=== PATIENT | male | born 1965 | race African-American/Black ===

== ENCOUNTER 2016-04-22 16:04 | Emergency (ER) | payer SELFPAY ==
[~2016-04-22] VITALS: Ht 193 cm; Wt 137.0 kg
[~2016-04-22 16:04] MED LIST: Z.0.NO CURRENT MEDS
[2016-04-22 16:05] VITALS: BP 166/94; PULSE 86; RESP 20; TEMP 100.8; O2SAT 97
[2016-04-22] MEDS ORDERED: ONDANSETRON HCL 4 MG/2 ML VIAL IV PUSH ONE (16:30)
[2016-04-22] MEDS ORDERED: SODIUM CHLOR 0.9% 1000 ML INJ 1,000 ML IV ONE (16:30)
[2016-04-22] MEDS ORDERED: RESP: ALBUTEROL 2.5 MG/IPRATROPIUM 0.5 MG NEB (SCH) NEB ONE (16:30)
[2016-04-22] MEDS ORDERED: RESP: LIDOCAINE HCL 4% PF 5 ML NEB NEB ONE (16:30)
[2016-04-22] MEDS ORDERED: ACETAMINOPHEN 325 MG TAB PO ONE (16:30)
--- NOTE | 2016-04-22 16:34 | PD ---
HPI Chief Complaint: Cold / Flu Symptoms Time Seen by Provider: 16:25 Travel History International Travel<30 days: No Contact w/Intl Traveler<30days: No Traveled to known affect area: No History of Present Illness HPI The patient is a 50-year-old after French male who presents emergency department for cough and cold symptoms. The patient states his symptoms started several days ago, initially with headache, body aches, cough, nausea, vomiting, and diarrhea. The patient states his cough is productive, producing yellow sputum, but denies any shortness of breath. He does complain of fevers high as 100.8 at home with intermittent chills and sweats. The headache is intermittent, the body aches have resolved, his last episode of nausea and vomiting with several days ago, however, he did have 1 episode of diarrhea this morning which she describes as loose and watery. The patient does note a decreased appetite, last ate dinner, last night, hamburger. The patient has been drinking water today, but did not eat any food today. The patient does have a history of marijuana use, but denies any history of cigarette use. The patient denies any chronic medical problems. He states he currently does not have a primary physician. He denies any sick contacts at home. The patient did not receive an influenza vaccination this year. [facility] Past Medical History Medical History: Denies Significant Hx Past Surgical History Surgical History: No Previous Surgery Social History Tobacco Use: No Substance Use: Yes (marijuana) Allergies-Medications (Allergen,Severity, Reaction): Coded Allergies: No Known Allergies (Unverified , 04/22/16) Reported Meds & Prescriptions Reported Meds & Active Scripts Active No Active Prescriptions or Reported Medications Review of Systems Except as stated in HPI: all other systems reviewed are Neg General / Constitutional: Positive: Fever, Chills Eyes: No: Photophobia HENT: Positive: Headaches, Congestion Cardiovascular: No: Chest Pain or Discomfort Respiratory: Positive: Cough, No: Shortness of Breath Gastrointestinal: Positive: Nausea, Vomiting, Diarrhea, No: Abdominal Pain Genitourinary: No: Dysuria Musculoskeletal: Positive: Myalgias Skin: No Rash Physical Exam Narrative GENERAL: Awake, alert, pleasant 50-year-old male who appears his stated age and is in no acute respiratory distress. SKIN: Forehead is slightly diaphoretic. HEAD: Atraumatic. Normocephalic. EYES: Pupils equal and round. No scleral icterus. No injection or drainage. ENT: No nasal bleeding or discharge. Oropharynx reveals erythema but no exudate. NECK: Trachea midline. No JVD. CARDIOVASCULAR: Regular rate and rhythm. No murmur appreciated. Heart rate in the 80s. RESPIRATORY: No accessory muscle use. Few scattered rhonchi. GASTROINTESTINAL: Abdomen soft, non-tender, nondistended. No rebound tenderness. MUSCULOSKELETAL: No obvious deformities. No clubbing. No cyanosis. No edema. NEUROLOGICAL: Awake and alert. No obvious cranial nerve deficits. Motor grossly within normal limits. Normal speech. PSYCHIATRIC: Appropriate mood and affect; insight and judgment normal. Data Data Last Documented VS Vital Signs Date Time Temp Pulse Resp B/P Pulse Ox O2 Delivery O2 Flow Rate FiO2 04/22/16 17:54 98 21 04/22/16 16:49 88 20 180/78 Nasal Cannula 2 04/22/16 16:05 100.8 Orders Complete Blood Count With Diff (04/22/16 16:25) Comprehensive Metabolic Panel (04/22/16 16:25) Influenzae A/B Antigen (04/22/16 16:25) Chest, Single Ap (04/22/16 ) Lactic Acid (04/22/16 16:25) Sodium Chlor 0.9% 1000 Ml Inj (Ns 1000 M (04/22/16 16:30) Acetaminophen (Tylenol) (04/22/16 16:30) Albuterol-Ipratropium Neb (Duoneb Neb) (04/22/16 16:30) Lidocaine Pf 4% Neb (Lidocaine Pf 4% Neb (04/22/16 16:30) Ondansetron Inj (Zofran Inj) (04/22/16 16:30) Amlodipine (Norvasc) (04/22/16 18:15) Oseltamivir (Tamiflu) (04/22/16 18:15) Labs Laboratory Tests Test 04/22/16 17:00 White Blood Count 5.0 TH/MM3 Red Blood Count 4.97 MIL/MM3 Hemoglobin 15.3 GM/DL Hematocrit 44.0 % Mean Corpuscular Volume 88.5 FL Mean Corpuscular Hemoglobin 30.8 PG Mean Corpuscular Hemoglobin 34.8 % Concent Red Cell Distribution Width 13.5 % Platelet Count 196 TH/MM3 Mean Platelet Volume 9.2 FL Neutrophils (%) (Auto) 63.3 % Lymphocytes (%) (Auto) 13.6 % Monocytes (%) (Auto) 22.4 % Eosinophils (%) (Auto) 0.4 % Basophils (%) (Auto) 0.3 % Neutrophils # (Auto) 3.2 TH/MM3 Lymphocytes # (Auto) 0.7 TH/MM3 Monocytes # (Auto) 1.1 TH/MM3 Eosinophils # (Auto) 0.0 TH/MM3 Basophils # (Auto) 0.0 TH/MM3 CBC Comment DIFF FINAL Differential Comment Sodium Level 138 MEQ/L Potassium Level 3.2 MEQ/L Chloride Level 102 MEQ/L Carbon Dioxide Level 28.3 MEQ/L Anion Gap 8 MEQ/L Blood Urea Nitrogen 10 MG/DL Creatinine 1.45 MG/DL Estimat Glomerular Filtration 63 ML/MIN Rate Random Glucose 90 MG/DL Lactic Acid Level 1.0 mmol/L Calcium Level 8.6 MG/DL Total Bilirubin 0.4 MG/DL Aspartate Amino Transf 40 U/L (AST/SGOT) Alanine Aminotransferase 39 U/L (ALT/SGPT) Alkaline Phosphatase 91 U/L Total Protein 8.3 GM/DL Albumin 4.1 GM/DL MDM Medical Decision Making Medical Screen Exam Complete: Yes Emergency Medical Condition: Yes Medical Record Reviewed: Yes Interpretation(s) Laboratory Tests Test 04/22/16 17:00 White Blood Count 5.0 TH/MM3 Red Blood Count 4.97 MIL/MM3 Hemoglobin 15.3 GM/DL Hematocrit 44.0 % Mean Corpuscular Volume 88.5 FL Mean Corpuscular Hemoglobin 30.8 PG Mean Corpuscular Hemoglobin 34.8 % Concent Red Cell Distribution Width 13.5 % Platelet Count 196 TH/MM3 Mean Platelet Volume 9.2 FL Neutrophils (%) (Auto) 63.3 % Lymphocytes (%) (Auto) 13.6 % Monocytes (%) (Auto) 22.4 % Eosinophils (%) (Auto) 0.4 % Basophils (%) (Auto) 0.3 % Neutrophils # (Auto) 3.2 TH/MM3 Lymphocytes # (Auto) 0.7 TH/MM3 Monocytes # (Auto) 1.1 TH/MM3 Eosinophils # (Auto) 0.0 TH/MM3 Basophils # (Auto) 0.0 TH/MM3 CBC Comment DIFF FINAL Differential Comment Sodium Level 138 MEQ/L Potassium Level 3.2 MEQ/L Chloride Level 102 MEQ/L Carbon Dioxide Level 28.3 MEQ/L Anion Gap 8 MEQ/L Blood Urea Nitrogen 10 MG/DL Creatinine 1.45 MG/DL Estimat Glomerular Filtration 63 ML/MIN Rate Random Glucose 90 MG/DL Lactic Acid Level 1.0 mmol/L Calcium Level 8.6 MG/DL Total Bilirubin 0.4 MG/DL Aspartate Amino Transf 40 U/L (AST/SGOT) Alanine Aminotransferase 39 U/L (ALT/SGPT) Alkaline Phosphatase 91 U/L Total Protein 8.3 GM/DL Albumin 4.1 GM/DL Last Impressions Chest X-Ray 04/22/16 0000 Signed Impressions: Service Date/Time: Friday, April 22, 2016 16:48 - CONCLUSION: No acute disease. Sherman Walker MD Date/Time Procedure Status Source Growth 04/22/16 17:00 Influenza Types A,B Antigen ([facility]) - Final Complete Nasal Aspirate Positive For Flu A Antigen Differential Diagnosis Differential diagnosis includes influenza, viral syndrome, pneumonia, bronchitis , meningitis, dehydration. Narrative Course IV was established, labs were drawn and sent, and the patient was placed on cardiac telemetry monitoring and continuous pulse oximetry monitoring. Chest x- ray was ordered. Influenza screen was sent to lab. The patient was administered Zofran, IV fluids, and Tylenol. Patient was also given 1 DuoNeb with respiratory lidocaine. The patient's laboratory evaluation reveals normal white count, creatinine is mildly elevated 1.45, potassium is mildly low at 3.2. Chest x-rays unremarkable, no evidence of pneumonia. Influenza screen is positive for influenza A. The patient's blood pressure continued be elevated in the 190s/100s, therefore, was placed on Norvasc 10 mg orally. The patient will be discharged home on Tamiflu and Norvasc, is advised to follow-up with her primary physician for reevaluation of his blood pressure, return if symptoms worsen or progress. I had a discussion with the patient regarding the adverse effects of prolonged hypertension including ocular degenerative changes , coronary artery disease, chronic renal insufficiency, and peripheral vascular changes. The patient states he will follow-up with a primary physician. Diagnosis Primary Impression: Influenza A Additional Impression: Hypertension Qualified Code: I10 - Essential hypertension Patient Instructions: General Instructions Additional Instructions: Medications as directed. Follow-up with a primary physician. Return if symptoms worsen or progress. Med/Other Pt SpecificInfo: Prescription(s) given Scripts Amlodipine (Norvasc)10 Mg Tab10 Mg PO DAILY #30 TAB Ref 0 Prov:Tucker Bernal MD 04/22/16 Oseltamivir (Tamiflu)75 Mg Cap75 Mg PO BID 5 Days Ref 0 Prov:Tucker Bernal MD 04/22/16 Disposition: 01 DISCHARGE HOME Condition: Stable Tucker Bernal MD Apr 22, 2016 16:34
[2016-04-22 16:49] VITALS: BP 180/78; PULSE 88; RESP 20; O2SAT 92
--- NOTE | 2016-04-22 17:13 | RADRPT ---
EXAM DATE/TIME: 04/22/2016 16:48 [facility] COMPARISON: No previous studies available for comparison. INDICATIONS : Fever MEDICAL HISTORY : None. SURGICAL HISTORY : None. ENCOUNTER: Initial ACUITY: 1 day PAIN SCORE: 0/10 LOCATION: Bilateral chest FINDINGS: A single view of the chest demonstrates the lungs to be symmetrically aerated without evidence of mas s, infiltrate or effusion. The cardiomediastinal contours are unremarkable. Osseous structures are intact. CONCLUSION: No acute disease. Sherman Walker MD on April 22, 2016 at 17:11 Board Certified Radiologist. This report was verified electronically.
[2016-04-22 17:19] LABS: AUTOMATED NEUTROPHIL # 3.2 TH/MM3 (1.8-7.7); BASOPHIL % 0.3 % (0.0-2.0); EOSINOPHIL % 0.4 % (0.0-4.0); HEMO FLAGS DIFF FINAL; LYMPH % 13.6 % (9.0-44.0); LYMPHOCYTE # 0.7 TH/MM3 (1.0-4.8); MEAN CELL VOLUME 88.5 FL (80.0-100.0); MEAN CORPUSCULAR HEMOGLOBIN 30.8 PG (27.0-34.0); MEAN CORPUSCULAR HGB CONC 34.8 % (32.0-36.0); MONO % 22.4 % (0.0-8.0); NEUT % 63.3 % (16.0-70.0); PLATELET COUNT 196 TH/MM3 (150-450); RED BLOOD COUNT 4.97 MIL/MM3 (4.50-5.90); RED CELL DISTRIBUTION WIDTH 13.5 % (11.6-17.2)
[2016-04-22 17:31] LABS: ALT (GPT) 39 U/L (12-78); ANION GAP 8 MEQ/L (5-15); AST (GOT) 40 U/L (15-37); BICARBONATE 28.3 MEQ/L (21.0-32.0); BLOOD UREA NITROGEN 10 MG/DL (7-18); CHLORIDE 102 MEQ/L (98-107); GLOMERULAR FILTRATION RATE 63 ML/MIN (>89); POTASSIUM 3.2 MEQ/L (3.5-5.1); SODIUM (NA) 138 MEQ/L (136-145)
[2016-04-22 17:32] LABS: ALKALINE PHOSPHATASE 91 U/L (45-117); TOTAL BILIRUBIN ADULT 0.4 MG/DL (0.2-1.0)
[2016-04-22 17:54] VITALS: O2SAT 98
[2016-04-22] MEDS ORDERED: OSEL75 PO (18:07)
[2016-04-22] MEDS ORDERED: AMLO10 PO (18:07)
[2016-04-22] MEDS ORDERED: OSELTAMIVIR PHOSPHATE 75 MG CAP PO ONE (18:15)
[2016-04-22 18:29] VITALS: BP 192/109; PULSE 83; RESP 18; O2SAT 94
== END 2016-04-22 19:16 | disposition home or self-care (01) ==
LOC: NEPE 16:04
DX: J09.X2 Influenza due to identified novel influenza A virus with other respiratory manifestations (principal); I10 Essential (primary) hypertension; F12.90 Cannabis use, unspecified, uncomplicated; R05 Cough
CPT/HCPCS: 71010; 80053; 83605; 85025; 87804; 94640; 94664; 96361; 96374; 99284; J2405; J7030